=== PATIENT | male | born 1950 | race Caucasian/White ===

== ENCOUNTER → 2018-09-10 | Outpatient (CLI) | payer MEDICARE, BC ==
--- NOTE | 2018-09-10 19:12 | RADIOLOGY REPORT (SQ) ---
EXAM DESCRIPTION: FOREARM LEFT COMPLETED DATE/TIME: 09/10/2018 4:59 pm REASON FOR STUDY: MRI CLEARANCE M25.561 PAIN IN RIGHT KNEE COMPARISON: None. NUMBER OF VIEWS: Two views. TECHNIQUE: Two radiographic images acquired of the left forearm, including elbow and wrist in at [address] one projection. LIMITATIONS: None. FINDINGS: MINERALIZATION: Normal. BONES: No acute fracture. No worrisome bone lesions. SOFT TISSUES: Metallic foreign body in the soft tissues of the mid forearm ventral surface. OTHER: No other significant finding. IMPRESSION: Metallic foreign body in the soft tissues. TECHNICAL DOCUMENTATION: JOB ID: [id number] [employer]- All Rights Reserved Reading location - IP/workstation name: [email or web address]
--- NOTE | 2018-09-10 19:18 | RADIOLOGY REPORT (SQ) ---
EXAM DESCRIPTION: MRI RT LOWER JOINT WITHOUT COMPLETED DATE/TIME: 09/10/2018 6:23 pm REASON FOR STUDY: M25.561 PAIN IN RIGHT KNEE M25.561 PAIN IN RIGHT KNEE COMPARISON: None. TECHNIQUE: Rightknee images acquired and stored on PACS. Multiplanar images include fat sensitive s equences as T1, water sensitive sequences as FST2 or STIR, cartilage sensitive sequences as FSPD, and gradient echo sequences. LIMITATIONS: None. FINDINGS: JOINT AND BURSAE: Joint effusion. No popliteal cyst. BONE CORTEX AND MARROW: No alteration of signal to suggest marrow replacement. No worrisome bone lesi ons. No occult fracture. ACL: Intact. No degeneration or ganglion cyst. PCL: Intact. MCL: Edema along the MCL. LCL: Intact. No periligamentous edema or fluid. MEDIAL MENISCUS: And vertical radial tear of the posterior meniscus and there is meniscal material fl ipped centrally. LATERAL MENISCUS: No tears. No abnormal signal. MEDIAL COMPARTMENT: Reactive marrow edema. Medial osteophytes. Generalize cartilaginous loss. LATERAL COMPARTMENT: Cartilage preserved. No bone bruises or reactive marrow edema. No osteophytes. PATELLA: No chondromalacia. No subchondral cysts. Medial and lateral retinacula intact. EXTENSOR MECHANISM: Intact. Quadriceps and patella tendons normal. Small pretibial fluid collection at the insertion of the patellar tendon. SOFT TISSUES: Adjacent muscles and subcutaneous tissues normal. Normal flow void in popliteal artery and vein. OTHER: No other significant finding. IMPRESSION: Complex tear of the medial meniscus with a vertical radial component. The meniscus is f lipped centrally. Marked associated degenerative changes in medial compartment. Joint effusion. Pretibial effusion. TECHNICAL DOCUMENTATION: JOB ID: [id number] [employer]- All Rights Reserved Reading location - IP/workstation name: [email or web address]
== END ==
LOC: RAD 16:19
PROVIDERS: ATTEND Orthopaedic Surgery Sports Medicine
DX: M25.561 Pain in right knee (principal)

== ENCOUNTER → 2018-10-26 | Outpatient (CLI) | payer MEDICARE, BC | LOC: RAD 20:44 | PROVIDERS: ATTEND Orthopaedic Surgery Sports Medicine | DX: Z53.9 Procedure and treatment not carried out, unspecified reason (principal) ==

== ENCOUNTER → 2018-10-26 | Outpatient (CLI) | payer MEDICARE, BC ==
--- NOTE | 2018-10-26 23:17 | RADIOLOGY REPORT (SQ) ---
EXAM DESCRIPTION: US EXTREMITY VEINS UNILATERAL COMPLETED DATE/TME: 10/26/2018 00:00 CLINICAL HISTORY: 68 years Male RLE PAIN COMPARISON: None. TECHNIQUE: Duplex imaging performed to evaluate the right lower extremity venous structures. Compression imaging and augmentation imaging performed. The common femoral, superficial femoral, popliteal, greater saphenous and posterior tibial veins were examined. FINDINGS: No thrombus is identified in the right lower extremity venous structures. Nonvisualization of the peroneal vein. IMPRESSION: No DVT is identified in the right lower extremity.
== END ==
LOC: SP 17:23
PROVIDERS: ATTEND Orthopaedic Surgery Sports Medicine
DX: M79.661 Pain in right lower leg (principal); R60.9 Edema, unspecified
CPT/HCPCS: 93971